=== PATIENT | female | born 1990 | race Caucasian/White ===

== ENCOUNTER 2023-09-27 16:14 | Emergency (ER) | payer MEDICAID, SELFPAY ==
[2023-09-27 16:15] VITALS: BP 135/87; PULSE 84; PULSE 89; RESP 14; TEMP 36.3; O2SAT 95; O2SAT 96; BMI 40.1
--- NOTE | 2023-09-27 16:26 | EX.ED.UPPERE ---
HPI History of Present Illness Chief Complaint: Upper Extremity Injury [facility] Medical History Physical exam, pre-employment Allergy/AdvReac Type Severity Reaction Status Date / Time levofloxacin (From Levaquin) Allergy Severe Anaphylaxis Verified 09/27/23 16:18 azithromycin Allergy Mild Hives Verified 09/27/23 16:18 ciprofloxacin (From Cipro) Allergy Mild Hives Verified 09/27/23 16:18 Iodinated Contrast Media Allergy Mild Hives Verified 09/27/23 16:18 (iodine dye) sucralfate (From Carafate) Allergy Mild Hives Verified 09/27/23 16:18 hydrocodone (From Vicodin) AdvReac Intermediate Other Verified 09/27/23 16:18 Social History Smoking Status: Never smoker EXAM Physical Exam Const Vital Signs: 09/27/23 16:15 09/27/23 16:15 Temperature 97.4 F L Temperature Source Temporal Pulse Rate 89 84 Respiratory Rate 14 14 Blood Pressure 135/87 H 135/87 H Blood Pressure Mean 103 103 Pulse Ox 95 96 Oxygen Delivery Method Room Air Room Air MDM MDM MDM Narrative Medical decision making narrative: HISTORY OF PRESENT ILLNESS: 33-year-old F here with right wrist pain. States prior to arrival she was lifting a laundry told experienced severe pain in her right wrist. States she has history of carpal tunnel. Denies any other injury. Denies any loss of sensation. Notes decreased movement secondary to pain REVIEW OF SYSTEMS: Pertinent positives: Wrist pain Pertinent negatives: Numbness, tingling, loss of sensation PHYSICAL EXAM: Nursing triage notes reviewed, Vital signs reviewed Constitutional: please see mdm HENT: MMM : No CVAT Extremities: No edema Neuro: Intact 5/5 strength with ok sign (median), intact finger abduction (ulnar) intact wrist extension (radial n). Intact sensation in the radial, ulnar, and median nerve distributions. Skin: No rash or lesions noted, no crepitus or bullae MEDICAL DECISION MAKING: Chief Complaint: hand injury External records reviewed: No prior imaging of the affected Factors affecting care: none Social determinants of health: none History obtained from others: none Consults: none MDM Narrative: Patient is hemodynamically stable, afebrile and nontoxic-appearing. Exam without any focal deficits the right upper extremity. No obvious deformities. No signs of infection. I considered the following differential diagnosis: Wrist sprain, bony fracture dislocation, cellulitis, carpal tunnel syndrome, arterial occlusion, DVT There is no clinical or historical evidence to suggest DVT, arterial occlusion, cellulitis or other infectious etiologies. History is most consistent with likely sprain. I obtained an x-ray to rule out any bony injury such as fracture or dislocation. ALL IMAGES (IF OBTAINED) HAVE BEEN PERSONALLY REVIEWED AND INTERPRETED BY MYSELF. X-ray of the right wrist was read reviewed myself and showed no evidence of acute bony injury The synthesis of the patient's history, physical exam, imaging studies suggest no acute life or limb threatening etiology. She is likely some from a wrist pain. Tylenol, ibuprofen and ice/RICE instructions were given. Strict return precautions were discussed The patient and/or family, caregivers express understanding. The patient and/or family, caregivers agrees with the plan. Shared decision making: I will have a discussion with the patient and or visitors regarding risk/benefits of further testing or admission. They will be made aware of of the risk/benefits inherent in this decision they will be given the opportunity to voice understanding. Total critical care time today provided was at least 0 minutes. This excludes separately billable procedures. Critical care time (if documented) is secondary to the patient having high probability of clinically significant/life threatening deterioration in the patient's condition which required my urgent intervention. Impression: 1. Acute right wrist pain 2. Right wrist sprain Dispo: Discharge home This note was generated with [employer] dictation software. It may contain incorrect words, spelling, and punctuation that were not noted in review of the chart prior to signing. Discharge Plan Triage Chief Complaint: Upper Extremity Injury ED Provider: Uriel Donato Dx/Rx/DC Orders Primary Care Provider: Care Physician,No Primary Referrals: Care Physician,No Primary [Primary Care Provider] - Print Language: Kinyarwanda
--- NOTE | 2023-09-27 16:55 | RAD_ITS ---
INDICATION: pain EXAMINATION/TECHNIQUE: X-RAY - RIGHT XR Wrist Min 3 Views 3 VIEWS COMPARISON: FINDINGS: BONES: No fracture demonstrated. JOINTS: No dislocation. SOFT TISSUES: Mild soft tissue swelling dorsally. RAD/Wrist min 3 Views IMPRESSION: Soft tissue swelling. No evidence of fracture. Electronically Signed: Kelly Orta MD at 17:23 EDT ,
[2023-09-27] MEDS: Acetaminophen 325 MG Tablet 650 MG PO (17:05)
[2023-09-27] MEDS: Ibuprofen 200 MG Tablet 400 MG PO (17:05)
[2023-09-27 17:50] VITALS: BP 133/81; PULSE 72; RESP 16; TEMP 36.1; O2SAT 100
== END 2023-09-27 17:54 | disposition home or self-care (01) ==
PROVIDERS: Emergency Provider Emergency Medicine; Visit Provider Emergency Medicine
DX: S63.91XA Sprain of unspecified part of right wrist and hand, initial encounter (principal); M25.531 Pain in right wrist; X58.XXXA Exposure to other specified factors, initial encounter
CPT/HCPCS: 73110; 99282